=== PATIENT | male | born 1985 | race Caucasian/White ===

== ENCOUNTER 2016-06-02 14:54 | Emergency (ER) | payer SELFPAY ==
[2016-06-02 15:03] VITALS: BP 131/91; PULSE 98; RESP 17; TEMP 97.9; O2SAT 97
--- NOTE | 2016-06-02 15:44 | EDPHY ---
H & P Stated Complaint: VENTRIC/BLADDER SHUNT HAVING N/V FAIR Time Seen by Provider: 06/02/16 15:22 HPI/ROS: CHIEF COMPLAINT: Ongoing headache history of CHEMICAL STRENGTH TESTER shunt HISTORY OF PRESENT ILLNESS: The patient presents to the emergency department with complaints of an ongoing headache. 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 The patient was seen in our emergency department at the end of April for evaluation of possible shunt failure. He had a CT scan of his head at that time which demonstrated no evidence of hydrocephalus according to his ED report, the patient left after he did not receive IV narcotic medications. I did also review the [facility] database and see that the patient went to another hospital in [place] with similar complaints. The patient had another CT scan done of his brain on May 22. That was also normal. The patient was treated for migraine syndrome at that point time. Patient presents to the ED today with ongoing symptoms. He denies numbness or weakness. He denies fall or trauma. He has no complaints of fever. REVIEW OF SYSTEMS: A comprehensive 10 point review of systems is otherwise negative aside from elements mentioned in the history of present illness. 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 - Social History Smoking Status: Current every day smoker - Physical Exam Exam: General Appearance: Alert, no distress Eyes: Pupils equal and round no pallor or injection ENT, Mouth: Mucous membranes moist Respiratory: There are no retractions, lungs are clear to auscultation Cardiovascular: Regular rate and rhythm Gastrointestinal: Abdomen is soft and nontender, no masses, bowel sounds normal Neurological: A&O, normal motor function, normal sensory exam, normal cranial nerves Skin: Surgical incisions are clean dry and intact Musculoskeletal: Neck is supple nontender Extremities: symmetrical, full range of motion Constitutional: Initial Vital Signs Temperature (C) 36.6 C 06/02/16 15:00 Heart Rate 98 06/02/16 15:00 Respiratory Rate 17 06/02/16 15:00 Blood Pressure 131/91 H 06/02/16 15:00 O2 Sat (%) 97 06/02/16 15:00 O2 Delivery Mode Room Air Allergies/Adverse Reactions: diphenhydramine HCl [From Benadryl] Allergy (Verified 06/02/16 14:59) gabapentin Allergy (Verified 06/02/16 14:59) hydrochlorothiazide Allergy (Verified 06/02/16 14:59) NSAIDS (Non-Steroidal Anti-Inflamma Allergy (Verified 06/02/16 14:59) phenytoin sodium [From Dilantin] Allergy (Verified 06/02/16 14:59) phenytoin sodium extended [From Dilantin] Allergy (Verified 06/02/16 14:59) prochlorperazine [From Compazine] Allergy (Verified 06/02/16 14:59) prochlorperazine edisylate [From Compazine] Allergy (Verified 06/02/16 14:59) prochlorperazine maleate [From Compazine] Allergy (Verified 06/02/16 14:59) promethazine HCl [From Phenergan] Allergy (Verified 06/02/16 14:59) Sulfa (Sulfonamide Antibiotics) Allergy (Verified 06/02/16 14:59) sumatriptan [From Imitrex] Allergy (Verified 06/02/16 14:59) sumatriptan succinate [From Imitrex] Allergy (Verified 06/02/16 14:59) HEPARIN AGENTS Allergy (Uncoded 05/14/16 16:32) Home Medications: Medication Instructions Recorded Ethosuximide 05/14/16 LaMICtal 05/14/16 Roxicodone 05/14/16 Medical Decision Making ED Course/Re-evaluation: I reviewed the patient's past medical records. His physical exam demonstrates no clinical evidence of increased ICP. The patient has no papilledema and is not exhibiting symptoms of ataxia. The patient has had 2 CT scans in the past 3 weeks both of which were normal. I do not feel the patient is presenting with evidence of a acute shunt failure. He is afebrile. He has no meningeal symptoms. The patient will be provided a prescription for Zofran. He is advised to follow up with our on-call neurologist for further evaluation of his chronic headaches. Departure - Departure Disposition: Home, Routine, Self-Care Clinical Impression: Headache Condition: Good Instructions: Cluster Headache (ED) Additional Instructions: 1. Return to the emergency department for fever. 2. Please follow up with a neurologist you have been referred to for further evaluation of your chronic headache. 3. Please follow up with the primary care provider your scheduled to see an Ellen. 4. Zofran as needed for nausea. Referrals: Ryland Malik, [Medical Doctor] - As per Instructions
== END 2016-06-02 15:50 | disposition home or self-care (01) ==
DX: R51 Headache (principal); F17.200 Nicotine dependence, unspecified, uncomplicated

== ENCOUNTER 2018-01-17 16:57 | Emergency (ER) | payer MEDICAID ==
[2018-01-17 17:03] VITALS: BP 132/94
--- NOTE | 2018-01-17 17:31 | EDPHY ---
H & P Stated Complaint: FAIR blurred vision Time Seen by Provider: 01/17/18 17:14 HPI/ROS: CHIEF COMPLAINT: Headache and blurry vision HISTORY OF PRESENT ILLNESS: The patient presents to the ED with complaints of chronic headache and blurry vision. He has a history of a AUTOMOTIVE DESIGNER shunt. The patient has had multiple ED visits and a hospitalization recently. He was evaluated by the neurosurgical team who felt his shunt was appropriately functioning. They referred him to the [facility] as they do not have the ability to program the shot that he has. The patient has had a number of visits to emergency department. He was at [facility] 2 days ago with similar complaints. He received multiple doses of IV Dilaudid. There is concerned that the patient is exhibiting drug-seeking behavior. The patient denies any history of fall or trauma. He denies additional acute complaints. REVIEW OF SYSTEMS: A comprehensive 10 point review of systems is otherwise negative aside from elements mentioned in the history of present illness. 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 - Social History Smoking Status: Current every day smoker - Physical Exam Exam: General Appearance: Alert, no distress Eyes: Pupils equal and round no pallor or injection ENT, Mouth: Mucous membranes moist Respiratory: There are no retractions, lungs are clear to auscultation Cardiovascular: Regular rate and rhythm Gastrointestinal: Abdomen is soft and nontender, no masses, bowel sounds normal Neurological: A&O, normal motor function, normal sensory exam, normal cranial nerves Skin: Warm and dry, no rashes Musculoskeletal: Neck is supple nontender, no meningeal symptoms Extremities: symmetrical, full range of motion Constitutional: Initial Vital Signs Temperature (C) 36.7 C 01/17/18 17:01 Heart Rate 92 01/17/18 17:01 Respiratory Rate 16 01/17/18 17:01 Blood Pressure 132/94 H 01/17/18 17:01 O2 Sat (%) 96 01/17/18 17:01 O2 Delivery Mode Room Air Allergies/Adverse Reactions: diphenhydramine HCl [From Benadryl] Allergy (Verified 01/17/18 17:01) gabapentin Allergy (Verified 01/17/18 17:01) hydrochlorothiazide Allergy (Verified 01/17/18 17:01) NSAIDS (Non-Steroidal Anti-Inflamma Allergy (Verified 01/17/18 17:01) phenytoin sodium [From Dilantin] Allergy (Verified 01/17/18 17:01) phenytoin sodium extended [From Dilantin] Allergy (Verified 01/17/18 17:01) prochlorperazine [From Compazine] Allergy (Verified 01/17/18 17:01) prochlorperazine edisylate [From Compazine] Allergy (Verified 01/17/18 17:01) prochlorperazine maleate [From Compazine] Allergy (Verified 01/17/18 17:01) promethazine HCl [From Phenergan] Allergy (Verified 01/17/18 17:01) Sulfa (Sulfonamide Antibiotics) Allergy (Verified 01/17/18 17:01) sumatriptan [From Imitrex] Allergy (Verified 01/17/18 17:01) sumatriptan succinate [From Imitrex] Allergy (Verified 01/17/18 17:01) HEPARIN AGENTS Allergy (Uncoded 01/17/18 17:01) Home Medications: Medication Instructions Recorded oxyCODONE IR [Oxycodone Ir (*)] 5 mg PO Q4 PRN #15 tab 01/09/18 Medical Decision Making ED Course/Re-evaluation: I reviewed the patient's past medical records from our facility as well as [facility]. The patient has had numerous head CT scans over the past several weeks which demonstrate no evidence of acute hydrocephalus. The patient has had multiple shunt series which demonstrate no evidence of a shunt kink or malposition. I did curbside Dr. Wise who reiterates his recommendation that the patient follow up with the [facility]. The patient is interested in establishing primary care. Additionally the patient does have a small rash consistent with contact dermatitis to his left foot. He will be advised to use hydrocortisone ointment for this. The patient was not given narcotic medications in the emergency department. He has been told that we will not do narcotic medications for chronic pain management. The patient is given the contact number for [facility] if he wishes to establish local primary care. Departure - Departure Disposition: Home, Routine, Self-Care Clinical Impression: Chronic headache Condition: Good Instructions: Ventriculoperitoneal Shunt Placement for Hydrocephalus in Adults (DC) Additional Instructions: 1. We continued to reiterate that you should follow up with the [facility] as our neurosurgeons do not program your type of AUTOMOTIVE DESIGNER shunt. 2. You have had multiple CT scans, multiple emergency department visits and multiple x-rays over the past several weeks all of which demonstrate no evidence of a shunt malfunction. 3. We will not be able to prescribe narcotic medications for chronic headaches in the emergency department. 4. Please contact [facility] to establish primary care. 5. I do recommend following up with your regular neuro surgical team in [place]. 6. Please use hydrocortisone ointment 1% to the rash on your left foot Referrals: [facility],. [Clinic] - As per Instructions
== END 2018-01-17 17:55 | disposition home or self-care (01) ==
DX: R51 Headache (principal); G40.909 Epilepsy, unspecified, not intractable, without status epilepticus; Z98.2 Presence of cerebrospinal fluid drainage device; Z87.820 Personal history of traumatic brain injury; F17.200 Nicotine dependence, unspecified, uncomplicated